=== PATIENT | female | born 1950 | race Hispanic/Latino ===

== ENCOUNTER 2018-03-13 07:06 | Day surgery (SDC) | payer MEDICARE, BC ==
[2018-03-13 07:47] VITALS: BMI 31.6
[2018-03-13] MEDS ORDERED: Propofol 10 mg/ml Inj (20 ML) ONE ×3 (09:21→10:50)
[2018-03-13] MEDS ORDERED: Etomidate 20 mg/10ml Inj IV ONE (09:40)
[2018-03-13] MEDS ORDERED: Midazolam 2 MG/2 ML VIAL ONE (10:19)
[2018-03-13] MEDS ORDERED: Phenylephrine 10 mg/ml Inj ONE (10:27)
[2018-03-13] MEDS ORDERED: Sodium Chloride 0.9% 1,000 ML IV SCH (11:30)
[2018-03-13 11:34] VITALS: RESP 18
[2018-03-13 12:11] VITALS: BP 128/71; PULSE 79; TEMP 98.3; O2SAT 97
== END 2018-03-13 12:32 | disposition home or self-care (01) ==
LOC: ENDO 07:06
PROVIDERS: ATTEND Internal Medicine Gastroenterology
DX: Z12.11 Encounter for screening for malignant neoplasm of colon (principal); K55.20 Angiodysplasia of colon without hemorrhage; D12.2 Benign neoplasm of ascending colon; K57.30 Diverticulosis of large intestine without perforation or abscess without bleeding; K64.8 Other hemorrhoids; Z80.0 Family history of malignant neoplasm of digestive organs; Z86.010 Personal history of colon polyps
CPT/HCPCS: 45381; 45382; 45385; 88305; J2001; J2250; J2370; J2704; J3010; J7030; J7040; J7120

== ENCOUNTER → 2018-06-29 | Day surgery (SDC) | payer MEDICARE, BC ==
[2018-06-27 10:35] VITALS: BMI 30.4
[~2018-06-29] MED LIST: Propofol 10 mg/ml Inj (20 ML) ONE; Sodium Chloride 0.9% 1,000 ML IV SCH
[2018-06-29 11:02] VITALS: PULSE 80
[2018-06-29 11:49] VITALS: BP 107/80; RESP 16; TEMP 97.9; O2SAT 99
== END | disposition home or self-care (01) ==
LOC: ENDO 07:38
PROVIDERS: ATTEND Internal Medicine Gastroenterology
DX: Z12.11 Encounter for screening for malignant neoplasm of colon (principal); D12.2 Benign neoplasm of ascending colon; K55.20 Angiodysplasia of colon without hemorrhage; K57.30 Diverticulosis of large intestine without perforation or abscess without bleeding; K64.8 Other hemorrhoids; Z80.0 Family history of malignant neoplasm of digestive organs; E11.9 Type 2 diabetes mellitus without complications; E03.9 Hypothyroidism, unspecified; Z79.84 Long term (current) use of oral hypoglycemic drugs
CPT/HCPCS: 45380; 45381; 88305; J2001; J2704; J7030; J7040